=== PATIENT | female | born 1985 | race Caucasian/White ===

== ENCOUNTER 2017-07-28 13:49 | Emergency (ER) | payer OTHER ==
[2017-07-28 14:53] LABS: BILIRUBIN,URINE NEGATIVE (NEGATIVE); GLUCOSE, URINE (UA) NEGATIVE (NEGATIVE); KETONES,URINE (UA) NEGATIVE (NEGATIVE); LEUKOCYTE ESTERASE, URINE NEGATIVE (NEGATIVE); NITRITE,URINE NEGATIVE (NEGATIVE); OCCULT BLOOD,URINE NEGATIVE (NEGATIVE); PH,URINE 6.5 PH (5.0-7.5); PROTEIN,URINE NEGATIVE (NEGATIVE); UROBILINOGEN,URINE 0.2 (NORMAL) E.U./dL (NORMAL)
[2017-07-28 14:55] LABS: CLARITY,URINE CLEAR (CLEAR); HCG UR QUAL NEGATIVE
--- NOTE | 2017-07-28 15:25 | ED Physician Documentation ---
History of Present Illness - Stated complaint Stated Complaint: HEART RACING - Chief complaint Chief Complaint: General - Additonal information Additional information: hx from pt 31 f to ED for palp noted today has some burning int chest pain like heart burn per pt no fever no cough no SOA no abd pain no NVD denies preg no leg swelling no recent travel no new meds no caffeine no decongestants no stimulants Review of Systems Constitutional: denies: Fever, Chills, Myalgias Throat: denies: Sore throat Cardiac: reports: Chest pain / pressure (burning), Palpitations Respiratory: denies: Dyspnea GI: denies: Abdominal Pain, Nausea, Vomiting, Diarrhea : denies: Now EGA (denies) Musculoskeletal: denies: Extremity pain, Extremity swelling Endocrine: denies: Easy bruising / bleeding Immunocompromised: denies: Immunocompromised PD PAST MEDICAL HISTORY - Past Medical History Past Medical History: No - Past Surgical History Past Surgical History: No - Present Medications Home Medications: Ambulatory Orders Medication Instructions Recorded Confirmed Sucralfate 1 gm PO ACHS #120 tablet 07/28/17 raNITIdine [Zantac] 150 mg PO BID #60 tablet 07/28/17 - Allergies Allergies/Adverse Reactions: Allergies Allergy/AdvReac Type Severity Reaction Status Date / Time No Known Drug Allergies Allergy Verified 07/28/17 14:59 - Social History Does the pt smoke?: No Smoking Status: Never smoker Does the pt drink ETOH?: Yes Does the pt have substance abuse?: No - Immunizations Immunizations are current?: Yes PD ED PE NORMAL - Vitals Vital signs reviewed: Yes - Neck Neck: Supple, no meningeal sign - Cardiac Cardiac: RRR - Respiratory Respiratory: No respiratory distress, Clear bilaterally - Abdomen Abdomen: Soft, Non tender - Extremities Extremities: No tenderness to palpate, Normal ROM s pain, No edema, No calf tenderness / cord - Neuro Neuro: Alert and oriented X 3 Results - Vitals Vitals: Vital Signs - 24 hr 07/28/17 07/28/17 07/28/17 13:59 15:00 16:52 Temperature 37.2 C Heart Rate 102 H 108 H 101 H Respiratory 16 17 20 Rate Blood Pressure 150/87 H 128/72 113/72 O2 Saturation 100 97 100 Oxygen O2 Source Room air - EKG (time done) 1354 Rate: Rate (enter#) (103) Rhythm: Sinus tachycardia Intervals: Normal SD. No: Prolonged QT Ischemia: Normal ST segments Other comments: Other comments (no delta wave) - Labs Labs: Laboratory Tests 07/28/17 07/28/17 07/28/17 14:49 15:45 15:45 WBC 7.3 RBC 4.43 Hgb 13.9 Hct 40.9 MCV 92.4 MCH 31.3 H MCHC 33.9 RDW 12.4 Plt Count 261 MPV 7.0 L Neut # 5.4 Lymph # 1.6 [place] # 0.3 Eos # 0.0 Baso # 0.0 Absolute Nucleated RBC 0.00 Nucleated RBC % 0.0 D-Dimer < 200.0 L Sodium Potassium Chloride Carbon Dioxide Anion Gap BUN Creatinine Estimated GFR (MDRD) Glucose Calcium TSH Urine Color LIGHT YELLOW Urine Clarity CLEAR Urine pH 6.5 Ur Specific [place] <=1.005 Urine Protein NEGATIVE Urine Glucose (UA) NEGATIVE Urine Ketones NEGATIVE Urine Occult Blood NEGATIVE Urine Nitrite NEGATIVE Urine Bilirubin NEGATIVE Urine Urobilinogen 0.2 (NORMAL) Ur Leukocyte Esterase NEGATIVE Ur Microscopic Review NOT INDICATED Urine Culture Comments NOT INDICATED Urine HCG, Qual NEGATIVE 07/28/17 07/28/17 15:45 15:45 WBC RBC Hgb Hct MCV MCH MCHC RDW Plt Count MPV Neut # Lymph # [place] # Eos # Baso # Absolute Nucleated RBC Nucleated RBC % D-Dimer Sodium 137 Potassium 3.8 Chloride 104 Carbon Dioxide 25 Anion Gap 8.0 BUN 9 Creatinine 0.6 Estimated GFR (MDRD) 115 Glucose 99 Calcium 9.2 TSH 0.96 Urine Color Urine Clarity Urine pH Ur Specific [place] Urine Protein Urine Glucose (UA) Urine Ketones Urine Occult Blood Urine Nitrite Urine Bilirubin Urine Urobilinogen Ur Leukocyte Esterase Ur Microscopic Review Urine Culture Comments Urine HCG, Qual PD MEDICAL DECISION MAKING - ED course ED course: nl lyes not anemic not nl TSH neg d dimer no fever or apparent infection cause of tachycardia unclear but given reassuring wup - and that HR down with IVF - feel safe to dc Departure - Departure Disposition: 01 Home, Self Care Clinical Impression: Palpitations Condition: Good Instructions: ED Palpitations Prescriptions: raNITIdine [Zantac] 150 mg PO BID #60 tablet Sucralfate 1 gm PO ACHS #120 tablet Comments: Your labs all look fine- normal thyroid, neg blood clot test, not anemic, normal electrolytes - not Your exam does not suggest an infection Your EKG showed a normal rhythm and no sign of a heart attack Your heart rate is down with IV fluids I am not sure why your heart was racing today But given the reassuring ER work up I think it is safe for you to go home. Please rest and drink plenty of fluids Avoid any stimulants (caffeine tea coffee decongestants etc) Follow up with your PMD for a recheck kater this week Return to the ER if worse I also wrote prescriptions for your heart burn Forms: Activity restrictions
[2017-07-28] MEDS ORDERED: SODIUM CHLORIDE 0.9% 1,000 ML IV ONE (15:27)
[2017-07-28 15:59] LABS: BASOPHILS % (AUTO) 0.4 %; EOSINOPHILS % (AUTO) 0.1 %; HGB - HEMOGLOBIN 13.9 g/dL (12.0-16.0); LYMPHOCYTES # (AUTO) 1.6 10^3/uL (1.5-3.5); LYMPHOCYTES % (AUTO) 21.4 %; MEAN CORPUSCULAR HEMOGLOBIN 31.3 pg (27.0-31.0); MEAN CORPUSCULAR HGB CONC 33.9 g/dL (32.0-36.0); MEAN CORPUSCULAR VOLUME 92.4 fL (81.0-99.0); MONOCYTES # (AUTO) 0.3 10^3/uL (0.0-1.0); MONOCYTES % (AUTO) 3.9 %; NEUTROPHILS # (AUTO) 5.4 10^3/uL (1.5-6.6); NEUTROPHILS % (AUTO) 74.2 %; PLT - PLATELET COUNT 261 10^3/uL (130-450); RED BLOOD COUNT 4.43 10^6/uL (4.20-5.40); RED CELL DISTRIBUTION WIDTH 12.4 % (12.0-15.0); WHITE BLOOD COUNT 7.3 x10^3/uL (4.8-10.8)
[2017-07-28 16:09] LABS: CALCIUM 9.2 mg/dL (8.5-10.3); CREATININE 0.6 mg/dL (0.4-1.0)
[2017-07-28 16:52] VITALS: BP 113/72
== END 2017-07-28 17:23 | disposition home or self-care (01) ==
LOC: ED 13:49
DX: R00.2 Palpitations (principal); R00.0 Tachycardia, unspecified
CPT/HCPCS: 36415; 80048; 81001; 81003; 81025; 84443; 85025; 85379; 87086; 93005; 96360; 99283; 99284

== ENCOUNTER 2019-03-21 12:22 | Emergency (ER) | payer OTHER ==
[2019-03-21] MEDS ORDERED: cephALEXin 250 MG CAPSULE PO STA (12:56)
--- NOTE | 2019-03-21 12:59 | ED Physician Documentation ---
History of Present Illness - Stated complaint Stated Complaint: FEVER, CHILLS, RASH ON CHEST - Chief complaint Chief Complaint: Fever - History obtained from History obtained from: Patient - History of Present Illness Timing: Yesterday Pain level max: 6 Pain level now: 5 - Additonal information Additional information: 33-year-old female is breast-feeding. Has right breast redness and swelling. Subjective fevers at home. Nothing makes it better. Worse with palpation. Review of Systems Constitutional: reports: Fever, Chills Respiratory: denies: Cough GI: denies: Vomiting, Diarrhea Skin: denies: Rash Musculoskeletal: denies: Neck pain, Back pain Neurologic: denies: Headache PD PAST MEDICAL HISTORY - Past Medical History Past Medical History: No - Past Surgical History Past Surgical History: No - Present Medications Home Medications: Ambulatory Orders Medication Instructions Recorded Confirmed Sucralfate 1 gm PO ACHS #120 tablet 07/28/17 raNITIdine [Zantac] 150 mg PO BID #60 tablet 07/28/17 Cephalexin [Keflex] 500 mg PO Q6H #40 capsule 03/21/19 Hydrocodone/Acetaminophen 1 - 2 each PO Q6H PRN #10 tablet 03/21/19 [Hydrocodon-Acetaminophen 5-325] - Allergies Allergies/Adverse Reactions: Allergies Allergy/AdvReac Type Severity Reaction Status Date / Time No Known Drug Allergies Allergy Verified 03/21/19 12:33 - Social History Does the pt smoke?: No Smoking Status: Never smoker Does the pt drink ETOH?: Yes Does the pt have substance abuse?: No - Immunizations Immunizations are current?: Yes PD ED PE NORMAL - Vitals Vital signs reviewed: Yes - General General: Alert and oriented X 3, No acute distress, Well developed/nourished - HEENT HEENT: Moist mucous membranes - Neck Neck: Supple, no meningeal sign - Cardiac Cardiac: RRR, Strong equal pulses - Respiratory Respiratory: No respiratory distress, Clear bilaterally - Abdomen Abdomen: Soft, Non tender, Non distended - Derm Derm: Warm and dry - Extremities Extremities: No edema - Neuro Neuro: Alert and oriented X 3 - Psych Psych: Normal mood, Normal affect - Free text exam Free text exam: Erythema to the inferior aspect of the right breast. No purulent discharge from the nipple. Results - Vitals Vitals: Vital Signs - 24 hr 03/21/19 03/21/19 12:30 13:12 Temperature 37.5 C 37.1 C Heart Rate 108 H 105 H Respiratory 16 18 Rate Blood Pressure 120/80 123/83 H O2 Saturation 100 99 Oxygen O2 Source Room air PD MEDICAL DECISION MAKING - ED course Complexity details: considered differential, d/w patient ED course: Patient with a right breast mastitis. We will have her follow-up with her doctor to ensure resolution. Will place on Keflex for home. Encouraged her to continue breast-feeding. Patient counseled regarding signs and symptoms for which I believe and urgent re-evaluation would be necessary. Patient with good understanding of and agreement to plan and is comfortable going home at this time This document was made in part using voice recognition software. While efforts are made to proofread this document, sound alike and grammatical errors may occur. Departure - Departure Disposition: 01 Home, Self Care Clinical Impression: Mastitis Condition: Good Instructions: ED Breast Infec Follow-Up: your,doctor in 1 week if not better [Other] Prescriptions: Cephalexin [Keflex] 500 mg PO Q6H #40 capsule Hydrocodone/Acetaminophen [Hydrocodon-Acetaminophen 5-325] 1 - 2 each PO Q6H PRN #10 tablet PRN Reason: pain Comments: Take all antibiotics until gone. Return if you worsen. Follow-up with your doctor within 1 week if you are not improving. You should start to notice impr ovement within the next 24 to 48 hours. Continue to breast-feed. Do not drink alcohol or drive while on narcotic pain medicine. Note that many narcotic pain relievers also contain tylenol/acetaminophen. Please ensure that your total dose of acetaminophen from all sources does not exceed 3 grams (3000mg) per day. You may constipated on this medication, take a stool softener such as "Colace" twice a day while you are on it. Also recommend a [id number] laxative such as senna or MiraLAX any day that you do not have a bowel movement. If you received narcotic pain medication in the emergency department, do not drive or operate machinery for the next 24 hours. Discharge Date/Time: 03/21/19 13:22
[2019-03-21 13:14] VITALS: BP 123/83
== END 2019-03-21 13:22 | disposition home or self-care (01) ==
LOC: ED 12:22
DX: N61.0 Mastitis without abscess (principal)
CPT/HCPCS: 99282; 99284; A9270

== ENCOUNTER 2020-09-01 21:51 | Outpatient (CLI) | payer OTHER ==
--- NOTE | 2020-09-02 19:28 | Ultrasound Report ---
PROCEDURE: OB First Trimester w/TV INDICATIONS: POSITIVE OUTSIDE/PRIOR DATING DATA: Last menstrual period (LMP): 06/07/2020. LMP-based estimated date of delivery (DEE): 05/07/2020. First dating scan (date and location): 09/01/2020. Estimated date of delivery (DEE) from first dating scan: 05/10/2020. The below data below was generated using the ultrasound DEE of 09/01/2020 TECHNIQUE: Real-time scanning was performed of the fetus and maternal pelvic organs, with image documentation. Endovaginal scanning was also performed to better visualize the fetus and maternal ovaries. COMPARISON: None FINDINGS: Embryo: The placenta is posterior. Measured heart rate: 162 bpm Cervical length: Close, length not measured biometric measurements: [place]-rump length, 6.27 m, equals 12 weeks 4 days Biparietal diameter, 2.1 cm equals 13 weeks 2 days Head circumference, 7.5 cm equals 13 weeks 1 day Abdominal circumference, 5.7 cm equals 20 weeks 4 days Femur length, 0.9 cm equals 12.5 cm Estimated gestational age from this initial ultrasound: 12 weeks 6 days Measurement variability in dating: +/- 4 weeks by LMP, +/- 7 days by mean sac diameter (use before 6 weeks gestation if crown-rump length not able to be measured), +/- 5 days by crown-rump length (6-12 weeks gestation). Maternal organs: Ovaries demonstrate no significant abnormality. IMPRESSION: Single live intrauterine . No significant discrepancy is found between the estimated gestational age based upon these images and the estimated gestational age based upon the given date of the last menstrual period. Reviewed by: Edmar Hooker MD on 09/02/2020 6:27 PM ANDREA Approved by: Edmar Hooker MD on 09/02/2020 6:27 PM ANDREA Station ID: [id number]
== END 2020-09-01 21:52 | disposition home or self-care (01) ==
LOC: DI 21:51
PROVIDERS: ATTEND Obstetrics & Gynecology
DX: Z32.01 Encounter for pregnancy test, result positive (principal)

== ENCOUNTER 2020-09-06 08:00 | Outpatient (CLI) | payer OTHER ==
[2020-09-07 21:38] LABS: CHLAMYDIA TRACHOMATIS DNA NEGATIVE (NEGATIVE); NEISSERIA GONORRHOEAE DNA NEGATIVE (NEGATIVE); TRICHOMONAS VAGINALIS DNA NEGATIVE (NEGATIVE)
== END 2020-09-06 23:59 | disposition home or self-care (01) ==
LOC: LAB.WC 08:00
PROVIDERS: ATTEND Obstetrics & Gynecology
DX: Z11.3 Encounter for screening for infections with a predominantly sexual mode of transmission (principal)
CPT/HCPCS: 87491; 87591; 87661

== ENCOUNTER 2020-09-21 05:15 | Outpatient (CLI) | payer OTHER ==
[2020-09-21 23:53] LABS: CHLAMYDIA TRACHOMATIS DNA NEGATIVE (NEGATIVE); NEISSERIA GONORRHOEAE DNA NEGATIVE (NEGATIVE); TRICHOMONAS VAGINALIS DNA NEGATIVE (NEGATIVE)
== END 2020-09-21 05:16 | disposition home or self-care (01) ==
LOC: LAB.N 05:15
PROVIDERS: ATTEND Obstetrics & Gynecology
DX: Z36.89 Encounter for other specified antenatal screening (principal)
CPT/HCPCS: 81220; 87491; 87591; 87661